=== PATIENT | female | born 1955 | race Caucasian/White ===

== ENCOUNTER 2017-05-07 09:04 | Observation (INO) | payer BC ==
--- NOTE | ~2017-05-07 | EGD ---
EGD REPORT [facility] [address] [address] NAME: CHAPINCITO HOLLAND : [birth year] STATUS : ADM Tomasz PAT#: [id number] AGE: 62 ADM/REG DATE : 05/07/17 MR#: [id number] REPORT SERV DATE: 05/07/17 DICTATED BY: CORONA DIETZ III DATE: 05/07/17 REPORT STATUS : Draft TRANSCRIBED BY: [facility] DATE: 05/07/17 Endoscopy Center Patient Name: Chapincito Holland Date of : 1955 Attending MD: CORONA DIETZ III, MD Procedure Date No Time: 05/07/2017 Procedure: Upper GI endoscopy Indications: Heartburn Referring MD: [place] TUCKER Medicines: Propofol per Anesthesia Complications: No immediate complications. Procedure: Pre-Anesthesia Assessment: - ASA Grade Assessment: III - A patient with severe systemic disease. After obtaining informed consent, the endoscope was passed under direct vision. Throughout the procedure, the patient's blood pressure, pulse, and oxygen saturations were monitored continuously. The GIF H190 [id number] was introduced through the mouth, and advanced to the third part of duodenum. The upper GI endoscopy was accomplished with ease. The patient tolerated the procedure well. Findings: LA Grade D (one or more mucosal breaks involving at least 75% of esophageal circumference) esophagitis with no bleeding was found in the lower third of the esophagus. There were esophageal mucosal changes suspicious for short-segment Spann's esophagus present in the lower third of the esophagus. The maximum longitudinal extent of these mucosal changes was 2 cm in length. Mucosa was biopsied with a cold forceps for histology in 4 quadrants at intervals of 2 cm at 30 cm from the incisors and at 32 cm from the incisors. A total of 2 specimen bottles were sent to pathology. A small hiatus hernia was present. Multiple dispersed, small non-bleeding erosions were found in the entire examined stomach. There were stigmata of recent bleeding. Biopsies were taken with a cold forceps for histology. The examined duodenum was normal. Impression: - LA Grade D reflux esophagitis. - Esophageal mucosal changes suspicious for short-segment Spann's esophagus. Biopsied. - Hiatus hernia. - Non-bleeding erosive gastropathy. Biopsied. - Normal examined duodenum. EGD REPORT [address] [address] NAME: CHAPINCITO HOLLAND : [birth year] STATUS : ADM Tomasz [facility]#: [id number] AGE: 62 ADM/REG DATE : 05/07/17 MR#: [id number] REPORT SERV DATE: 05/07/17 DICTATED BY: CORONA DIETZ III DATE: 05/07/17 REPORT STATUS : Draft TRANSCRIBED BY: [facility] DATE: 05/07/17 Recommendation: - Patient has a contact number available for emergencies. The signs and symptoms of potential delayed complications were discussed with the patient. Return to normal activities tomorrow. Written discharge instructions were provided to the patient. - Observe patient in same day observation unit for ongoing care. - Follow an antireflux regimen. - Continue present medications. - Await pathology results. Procedure Code(s): --- Professional --- 53086, Esophagogastroduodenoscopy, flexible, transoral; with biopsy, single or multiple Diagnosis Code(s): --- Professional --- K21.0, Gastro-esophageal reflux disease with esophagitis K22.9, Disease of esophagus, unspecified K44.9, Diaphragmatic hernia without obstruction or gangrene K31.9, Disease of stomach and duodenum, unspecified R12, Heartburn CPT copyright 2013 [employer]. All rights reserved. The codes documented in this report are preliminary and upon sole ruffer review may be revised to meet current compliance requirements. CORONA DIETZ III, MD 05/07/2017 2:38 PM This report has been signed electronically. Number of Addenda: 0 Note Initiated On: 05/07/2017 2:16 PM Scope Withdrawal Time 0 hours 0 minutes 0 seconds [address] [address]
--- NOTE | ~2017-05-07 | EGD ---
EGD REPORT [facility] [address] [address] NAME: CHAPINCITO HOLLAND : [birth year] STATUS : ADM Tomasz PAT#: [id number] AGE: 62 ADM/REG DATE : 05/07/17 MR#: [id number] REPORT SERV DATE: 05/07/17 DICTATED BY: CORONA DIETZ III DATE: 05/07/17 REPORT STATUS : Draft [facility]: [facility] DATE: 05/07/17 Endoscopy Center Patient Name: Chapincito Holland Date of : 1955 Attending MD: CORONA DIETZ III, MD Procedure Date No Time: 05/07/2017 Procedure: Colonoscopy Indications: High risk colon cancer surveillance: Personal history of colonic polyps Medicines: Propofol per Anesthesia Complications: No immediate complications. Procedure: Pre-Anesthesia Assessment: - ASA Grade Assessment: III - A patient with severe systemic disease. After I obtained informed consent, the scope was passed under direct vision. Throughout the procedure, the patient's blood pressure, pulse, and oxygen saturations were monitored continuously. The PCF [id number] was introduced through the anus and advanced to the cecum, identified by appendiceal orifice and ileocecal valve. The colonoscopy was performed with ease. The patient tolerated the procedure well. The quality of the bowel preparation was good. Findings: Many small-mouthed diverticula were found in the sigmoid colon. A sessile polyp was found in the ascending colon. The polyp was 5 mm in size. The polyp was removed with a cold biopsy forceps. Resection and retrieval were complete. Impression: - Diverticulosis in the sigmoid colon. - One 5 mm polyp in the ascending colon. Resected and retrieved. Recommendation: - Patient has a contact number available for emergencies. The signs and symptoms of potential delayed complications were discussed with the patient. Return to normal activities tomorrow. Written discharge instructions were provided to the patient. - Observe patient in same day observation unit for ongoing care. - Continue present medications. - Await pathology results. Procedure Code(s): --- Professional --- EGD REPORT [facility] [address]. [address] NAME: CHAPINCITO HOLLAND : [birth year] STATUS : ADM Tomasz PAT#: [id number] AGE: 62 ADM/REG DATE : 05/07/17 MR#: [id number] REPORT SERV DATE: 05/07/17 DICTATED BY: CORONA DIETZ III DATE: 05/07/17 REPORT STATUS : Draft TRANSCRIBED BY: [employer] DATE: 05/07/17 [id number], Colonoscopy, flexible, proximal to splenic flexure; with biopsy, single or multiple Diagnosis Code(s): --- Professional --- K57.30, Diverticulosis of large intestine without perforation or abscess without bleeding D12.2, Benign neoplasm of ascending colon Z86.010, Personal history of colonic polyps CPT copyright 2013 [employer]. All rights reserved. The codes documented in this report are preliminary and upon information coder review may be revised to meet current compliance requirements. CORONA DIETZ III, MD 05/07/2017 2:52 PM This report has been signed electronically. Number of Addenda: 0 Note Initiated On: 05/07/2017 1:59 PM Scope Withdrawal Time 0 hours 10 minutes 10 seconds [address] [address]
--- NOTE | ~2017-05-07 | DS ---
Discharge Summary [facility] [address] [place]. [address] NAME: CHAPINCITO HOLLAND : [birth year] STATUS : ADM Tomasz PAT#: [id number] AGE: 62 ADM/REG DATE : 05/07/17 MR#: [id number] REPORT SERV DATE: 05/08/17 DICTATED BY: JAYNE LAI DATE: 05/08/17 REPORT STATUS : Draft TRANSCRIBED BY: MODL DATE: 05/08/17 ADMISSION DATE: 05/07/2017 DISCHARGE DATE: 05/08/2017 DISCHARGE DIAGNOSES: 1. Uncontrolled diabetes mellitus type 2. 2. Gastroesophageal reflux disease, with Spann's esophagitis, gastritis, and hiatal hernia. 3. Colon polyps. 4. 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 5. Major depression. 6. Obesity with body mass index of 33.9. 7. Elevated transaminases. 8. Possible urinary tract infection versus yeast vaginitis. 9. Multiple medication intolerance. HISTORY: This patient has had diabetes mellitus type 2 since 2000. She claims that she does not tolerate multiple types of insulin, she states they make her eyes and lips swell. Toujeo was tried and she had the same reaction after about a week. She also does not tolerate Actos. She has been on Amaryl and Kombiglyze, but her A1c according to her has been around 10. She was sent with Dr. Roberts to have EGD for reflux symptoms and followup colonoscopy for previous polyps. When she was found to have sugars in the 400s, they did go ahead and do her EGD on 05/07/2017, showing grade D reflux esophagitis, esophageal changes suspicious for Spann's, hiatal hernia, nonbleeding erosive gastropathy that was biopsied. Colonoscopy was done showing diverticulosis and a single 5 mm polyp in the ascending colon that was retrieved. Dr. Roberts requested that she stay for us to watch her sugars. The patient's sugars were up in the 400s. She had negative ketones. She had no evidence of acidosis. She was given some IV fluids. She was given some NovoLog. She states she is not tolerant of other insulins. She has had no sign of angina. No sign of active heart failure. She is eating. She is ambulating. Her ALT was 69, AST was 69, and creatinine is normal at 0.86. 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 We are checking the patient's urinalysis this morning, if there is evidence for infection, we will start on oral antibiotic. If there is no evidence of urinary tract infection, we Discharge Summary [facility] [place] [address] [place]. [address] NAME: CHAPINCITO HOLLAND : [birth year] STATUS : ADM Tomasz PAT#: [id number] AGE: 62 ADM/REG DATE : 05/07/17 MR#: [id number] REPORT SERV DATE: 05/08/17 DICTATED BY: JAYNE LAI DATE: 05/08/17 REPORT STATUS : Draft TRANSCRIBED BY: MARY DATE: 05/08/17 may give her some Diflucan for suspected yeast vaginitis, as she has not only a bit of dysuria, but some vaginal itching. We are asking her PCP to follow up on her liver enzyme elevation. DISCHARGE MEDICATIONS: Aspirin 81 mg daily, Kombiglyze XR 03/1000 one tablet every morning, vitamin D 5000 units every week, gabapentin 300 mg at bedtime, Amaryl 4 mg b.i.d., Pristiq 50 mg every morning. She takes Nucynta 50 mg p.r.n. pain. DICTATED BY: Jayne Lai M.D. RSOpal/MARY Jayne Lai M.D. / [id number] CC: Paige Blevins III, M.D. J. Scott Sherrer, M.D. Ana Cornea, M.D.
--- NOTE | ~2017-05-07 | HP ---
History And Physical [facility] [address] [facility] [place]. [address] NAME: CHAPINCITO HOLLAND : [birth year] STATUS : ADM Tomasz PAT#: [id number] AGE: 62 ADM/REG DATE : 05/07/17 MR#: [id number] REPORT SERV DATE: 05/07/17 DICTATED BY: PAULETTE BONE DATE: 05/07/17 REPORT STATUS : Draft TRANSCRIBED BY: MODL DATE: 05/07/17 DATE OF ADMISSION: 05/07/2017 HISTORY OF PRESENT ILLNESS: Ms. Holland is a 62-year-old female patient, who is being admitted as a direct admit to the CDU for 23-hour observation. Incidentally, the patient underwent both an upper endoscopy or EGD and colonoscopy today by Dr. Roberts as a routine surveillance. The patient states that she had had a pretty severe acid reflux within the last few weeks and she went ahead and agreed with Dr. Roberts to get both upper and lower endoscopy done today. The patient has had problems with colonic polyps before, and this was her routine surveillance colonoscopy and she actually went to the outpatient [facility]. Her blood sugar levels were found to be extremely high in the 300s and hence Dr. Roberts decided to perform the colonoscopy in the hospital. The patient was transferred to [facility] and here at the hospital underwent both EGD and colonoscopy. Now, she is being admitted for dehydration and hyperglycemia. I examined the patient at bedside. The patient has returned from endoscopy. At this time, she states that she is hungry and her mouth is dry. Other than that she is totally asymptomatic. She denies any headaches, blurry vision, any nausea, vomiting, abdominal pain, diarrhea, dysuria, hematuria, or any bleeding rectally, so she is completely asymptomatic. PAST MEDICAL HISTORY: Significant for diabetes mellitus for which she takes Amaryl and Kombiglyze on a regular basis. Until a few weeks ago, she was being managed by her family physician, but then when he found that her hemoglobin A1c was 10 despite the Kombiglyze and the Amaryl, he referred her to Dr. Elham Chiang, the catalyst concentration operator, with whom she has an appointment actually this coming Thursday05/11/2017. The patient states that she has been doing everything right and eating right also in the last few weeks trying to correct her blood glucose levels and her diabetes better. PAST MEDICAL HISTORY: Also significant for chronic pain in the neck, the left shoulder, and the left arm from neuropathy from an old injury for which she takes Nucynta on a p.r.n. basis and gabapentin on a regular basis. Other diagnoses also include multiple benign polyps in the colon and gastroesophageal reflux disease for which she underwent an upper and lower endoscopy today. SOCIAL HISTORY: The patient does not smoke or drink or do any illicit drugs. The patient is . FAMILY HISTORY: Positive for diabetes in mother. MEDICATIONS/ALLERGIES: Her home medications that she takes on a regular basis and allergies include the following: The patient has allergies to multiple medications including gemifloxacin, some types of insulin, she is not sure which ones, quinolones, lisinopril, tetracycline, adhesive tape, ramipril, and Byetta. When questioned again, patient states that she thinks that she can take the Humalog and even with whatever insulin that she was History And Physical [address] [address] NAME: CHAPINCITO HOLLAND : [birth year] STATUS : ADM Tomasz PAT#: [id number] AGE: 62 ADM/REG DATE : 05/07/17 MR#: [id number] REPORT SERV DATE: 05/07/17 DICTATED BY: PAULETTE BONE DATE: 05/07/17 REPORT STATUS : Draft TRANSCRIBED BY: MARY DATE: 05/07/17 allergic to she is not sure if she was allergic to latex are really insulin. She did get some eye swelling and itching all over specifically with Lantus and NovoLog but not Humalog. Her home medications otherwise include the following: Aspirin 81 mg once a day, vitamin D, Pristiq 50 mg once a day, Neurontin 300 mg p.o. at bedtime, Amaryl 4 mg p.o. b.i.d., Kombiglyze XR 03/1000 p.o. once a day. PHYSICAL EXAMINATION: GENERAL: On examination, the patient is alert, oriented, and appears very comfortable. Her skin and mucous membranes appear little dry. VITAL SIGNS: Her vital signs at this time showed that her blood pressure is stable. Her pulse is around 80 per minute. The patient is afebrile, and her O2 sats are normal. CARDIOVASCULAR SYSTEM: S1, S2 appreciated. Sinus rhythm. No murmurs, rubs, or gallops noted. RESPIRATORY SYSTEM: Clear lungs. ABDOMEN: Soft, nontender. Bowel sounds are appreciated. EXTREMITIES: There is no edema. LABORATORY DATA: Labs that I have from this morning show that her blood glucose levels have been running 414 and then 344 and then 279, and recently, when it was checked, it was in the mid 200s again. Her electrolyte profile today shows that her sodium is 139, potassium 4.4, BUN is 13, and creatinine is 0.8. ASSESSMENT: My assessment on this patient is dehydration and hyperglycemia for which she is being admitted for 23 hour observation. Her chronic problems include chronic pain in the neck, left shoulder, and left upper extremity from neuropathy from an old injury, which are all stable at this time and known diabetes mellitus. PLAN: For her dehydration, we will give her IV normal saline, and for her hyperglycemia, we will go ahead and check a hemoglobin A1c and start her on sliding scale insulin with Humalog level 3. We will also do Accu-Cheks before meals and at bedtime. We will keep her on an 1800 kilocalorie ADA diet. Specifically, we will continue her Amaryl and Kombiglyze, which are her home medications, as I really see no contraindications to these medications at this time. The plan is to discharge her in the morning if her sugars get better and she feels better and her dehydration corrects itself with IV fluids. She may need to go home on Humalog insulin sliding scale, maybe just a while or so until she is able to see Dr. Elham Chiang within the next three days. Dr. Lai will be following this patient and picking her up tomorrow on 05/08/2017. RRA/MODL Paulette Bone M.D. History And Physical [address] [address] NAME: CHAPINCITO HOLLAND : [birth year] STATUS : ADM Tomasz PAT#: [id number] AGE: 62 ADM/REG DATE : 05/07/17 MR#: [id number] REPORT SERV DATE: 05/07/17 DICTATED BY: PAULETTE BONE DATE: 05/07/17 REPORT STATUS : Draft TRANSCRIBED BY: MARY DATE: 05/07/17 / [id number] CC: Tommy Lai M.D.
[~2017-05-07 09:04] MED LIST: ALTA5 PO; AMARYL4 PO; ASAB PO; EDARBI40 MG PO; KLONO1 PO; KOMBIGLYZE XR1 EAC1 PO; MACROBID PO; NEUR300 PO; PRISTIQ50 MG PO; TUMSROLL PO; ULTRAM ER200 MG PO; VICTOZA SQ
[2017-05-07 11:36] LABS: BUN (BLOOD UREA NITROGEN) 13 MG/DL (6-23); CALCIUM, SERUM 9.1 MG/DL (8.5-10.4); CHLORIDE, SERUM 103 MMOL/L (96-112); CO2 (CARBON DIOXIDE) 22 MMOL/L (24-34); CREATININE 0.88 MG/DL (0.55-1.02); GFR AFRICAN AMERICAN 82 ML/MIN (>=60); GFR NON AFRICAN AMERICAN 71 ML/MIN (>=60); POTASSIUM, SERUM 4.1 MMOL/L (3.5-5.3); SODIUM, SERUM 137 MMOL/L (135-148)
[2017-05-07 11:37] LABS: GLUCOSE, SERUM 372 MG/DL (60-99)
[2017-05-07 14:11] LABS: BUN (BLOOD UREA NITROGEN) 13 MG/DL (6-23); CALCIUM, SERUM 9.2 MG/DL (8.5-10.4); CHLORIDE, SERUM 104 MMOL/L (96-112); CO2 (CARBON DIOXIDE) 26 MMOL/L (24-34); CREATININE 0.81 MG/DL (0.55-1.02); GFR AFRICAN AMERICAN 91 ML/MIN (>=60); GFR NON AFRICAN AMERICAN 78 ML/MIN (>=60); GLUCOSE, SERUM 277 MG/DL (60-99); POTASSIUM, SERUM 4.4 MMOL/L (3.5-5.3); SODIUM, SERUM 139 MMOL/L (135-148)
[2017-05-07] MEDS ORDERED: NUCYNTA50 MG (17:09)
[2017-05-07] MEDS ORDERED: VITAMIN D31000 UNIT PO (17:10)
[2017-05-07 18:35] LABS: BASOPHILS 0.6 %; BASOPHILS ABSOLUTE 0.04 10/3/uL (0.0-0.16); EOSINOPHILS 0.7 %; EOSINOPHILS ABSOLUTE 0.05 10/3/uL (0.0-0.53); HEMATOCRIT 43.8 % (36.0-48.0); HEMOGLOBIN 14.6 g/dL (12.0-16.0); IMMATURE GRANULOCYTES 0.3 %; IMMATURE GRANULOCYTES ABSOLUTE 0.02 10/3/uL (0.0-0.11); LYMPHOCYTES 26.1 %; LYMPHOCYTES ABSOLUTE 1.78 10/3/uL (0.67-4.30); MANUAL DIFF NO %; MEAN CORPUS HGB CONC 33.3 g/dL (32.0-36.0); MEAN CORPUSCULAR HEMOGLOB 28.3 pg (26.0-34.0); MEAN PLATELET VOLUME 11.5 fL (9.2-13.0); MONOCYTES 6.7 %; MONOCYTES ABSOLUTE 0.46 10/3/uL (0.21-1.20); NEUTROPHILS 65.6 %; NEUTROPHILS ABSOLUTE 4.47 10/3/uL (2.02-8.40); PLATELET COUNT 272 10/3/uL (150-400); RBC DISTRIBUTION WIDTH 12.7 % (12.0-16.0); RED CELL COUNT 5.15 10/6/uL (4.0-5.6); WHITE BLOOD CELLS 6.8 10/3/uL (4.5-10.5)
[2017-05-07 18:49] LABS: A/G RATIO 0.9 (0.7-1.9); ALBUMIN 3.4 G/DL (3.5-5.0); ALKALINE PHOSPHATASE 65 U/L (45-117); BUN (BLOOD UREA NITROGEN) 12 MG/DL (6-23); CHLORIDE, SERUM 101 MMOL/L (96-112); CO2 (CARBON DIOXIDE) 26 MMOL/L (24-34); CREATININE 0.86 MG/DL (0.55-1.02); GFR AFRICAN AMERICAN 85 ML/MIN (>=60); GFR NON AFRICAN AMERICAN 73 ML/MIN (>=60); GLOBULIN 3.7 G/DL (2.5-4.1); GLUCOSE, SERUM 283 MG/DL (60-99); POTASSIUM, SERUM 4.4 MMOL/L (3.5-5.3); SGOT(AST) 65 U/L (5-40); SGPT(ALT) 69 U/L (5-65); SODIUM, SERUM 134 MMOL/L (135-148); TOTAL BILIRUBIN 0.7 MG/DL (0-1.2); TOTAL PROTEIN 7.1 G/DL (6.0-8.5)
[2017-05-07 19:05] LABS: ACETONE NEG
[2017-05-08 09:30] LABS: ASCORBIC ACID (UR NOT ORDER) NEG (NEG); BILIRUBIN, URINE NEGATIVE (NEG); KETONE, URINE TRACE MG/DL (NEG); LEUKOCYTE ESTERASE(NOT OR SMALL (NEG); WBC (NOT ORDERED) (RFLEX) 15 (0-5)
[2017-05-08] MEDS ORDERED: MACROBID PO (10:37)
[2017-05-08] MEDS ORDERED: FLUCON150 PO (10:38)
== END 2017-05-08 11:45 | disposition home or self-care (01) ==
LOC: DMU 09:04 → CDU1 14:13
PROVIDERS: Hospitalist; Internal Medicine Gastroenterology
PROC: 0DB58ZX Excision of Esophagus, Via Natural or Artificial Opening Endoscopic, Diagnostic (ICD-10-PCS; 2017-05-07)
PROC: 0DBK8ZX Excision of Ascending Colon, Via Natural or Artificial Opening Endoscopic, Diagnostic (ICD-10-PCS; principal; 2017-05-07 13:00)
PROC: 0DB98ZX Excision of Duodenum, Via Natural or Artificial Opening Endoscopic, Diagnostic (ICD-10-PCS; 2017-05-07 13:00)
DX: Z12.11 Encounter for screening for malignant neoplasm of colon (principal); D12.2 Benign neoplasm of ascending colon; K44.9 Diaphragmatic hernia without obstruction or gangrene; K57.30 Diverticulosis of large intestine without perforation or abscess without bleeding; E11.9 Type 2 diabetes mellitus without complications; K31.9 Disease of stomach and duodenum, unspecified; K21.0 Gastro-esophageal reflux disease with esophagitis; K22.9 Disease of esophagus, unspecified; F32.9 Major depressive disorder, single episode, unspecified; E66.9 Obesity, unspecified; Z88.8 Allergy status to other drugs, medicaments and biological substances; Z79.899 Other long term (current) drug therapy; Z90.49 Acquired absence of other specified parts of digestive tract; Z90.89 Acquired absence of other organs; Z86.010 Personal history of colon polyps; Z79.82 Long term (current) use of aspirin
CPT/HCPCS: 80048; 80053; 81001; 82009; 82962; 83036; 85025; 87086; 88305; A9270-GY; G0378